=== PATIENT | female | born 1955 | race Hispanic/Latino ===

== ENCOUNTER → 2022-09-04 | Outpatient (CLI) | payer OTHER | END | disposition home or self-care (01) | LOC: RAH 14:33 | PROVIDERS: ATTEND Family Medicine | DX: I51.7 Cardiomegaly (principal); R06.02 Shortness of breath; R60.0 Localized edema; M79.605 Pain in left leg; M47.815 Spondylosis without myelopathy or radiculopathy, thoracolumbar region | CPT/HCPCS: 71046; 93970 ==

== ENCOUNTER 2023-04-30 10:15 | Day surgery (SDC) | payer OTHER ==
[~2023-04-30] VITALS: Ht 160 cm; Wt 68.0 kg
[2023-04-30] VITALS (10 sets, daily range): BP systolic 118–144; BP diastolic 63–77; PULSE 53–69; RESP 14–18
[~2023-04-30 10:15] MED LIST: 0.9%NACL 1000ML 1,000 ML IV ONE
[2023-04-30] MEDS ORDERED: ROSU20TA73 PO (11:11)
[2023-04-30] MEDS ORDERED: APIX5TAB PO (11:11)
[2023-04-30] MEDS ORDERED: SERT-438 PO (11:11)
[2023-04-30] MEDS ORDERED: GABA-529 PO (11:11)
[2023-04-30] MEDS ORDERED: PROPOFOL 10 MG/ML 20ML VIAL IV ONE (11:23)
== END 2023-04-30 14:22 | disposition home or self-care (01) ==
LOC: ENDO 10:15 → DAH 10:15 → EDSTATUS 12:10 → ENDO 14:22
PROVIDERS: ATTEND Internal Medicine Gastroenterology
DX: K74.69 Other cirrhosis of liver (principal); K29.50 Unspecified chronic gastritis without bleeding; K44.9 Diaphragmatic hernia without obstruction or gangrene; K31.89 Other diseases of stomach and duodenum; K76.6 Portal hypertension; I48.91 Unspecified atrial fibrillation; I10 Essential (primary) hypertension; F32.A Depression, unspecified; Z86.73 Personal history of transient ischemic attack (TIA), and cerebral infarction without residual deficits; Z90.5 Acquired absence of kidney; Z83.3 Family history of diabetes mellitus; Z82.5 Family history of asthma and other chronic lower respiratory diseases; Z85.528 Personal history of other malignant neoplasm of kidney; Z79.899 Other long term (current) drug therapy; Z90.49 Acquired absence of other specified parts of digestive tract; Z98.890 Other specified postprocedural states
CPT/HCPCS: 43239; J7030 ×2; J2704; A4620; A4215 ×2; A4223; A7002; A4222; A4221; A4663; A4606; J3490